=== PATIENT | male | born 1965 | race Caucasian/White ===

== ENCOUNTER 2020-12-15 15:54 | Emergency (ER) | payer SELFPAY ==
[2020-12-15] MEDS ORDERED: Sodium Chloride 0.9% 10 ML Syringe FLUSH PRN (16:23)
[2020-12-15] MEDS ORDERED: REMDESIVIR 200 MG in Sodium Chloride 0.9% 250 ML IV ONE (16:26)
--- NOTE | 2020-12-15 16:41 | EDM.PDOC ---
<Bolivar Liu G - Last Filed: 12/15/20 16:27> ED HPI GENERAL MEDICAL PROBLEM - General Chief Complaint: Respiratory Problem Stated Complaint: COVID Time Seen by Provider: 12/15/20 16:28 Source of Information: Reports: Patient, Old Records, RN History Limitations: Reports: No Limitations - History of Present Illness INITIAL COMMENTS - FREE TEXT/NARRATIVE: 55 yo male here with SOB. He is 10 days into his course. Has not been vaccinated for Covid. His is also sick with Covid for a similar interval, but she is not SOB. Requiring 3 liters/min/nc here in the ER to stabilize his oxygen level. Had Aleve 4 hrs ago. tested + for Covid, he has not actually been tested. Onset: Gradual Onset Date: 12/05/20 Duration: Day(s): (10), Getting Worse Location: Reports: Generalized Quality: Reports: Other (pain not reported. ) Severity: Moderate Improves with: Reports: Other (oxygen) Worsens with: Reports: Other (? time) Context: Reports: Other (See HPI) Associated Symptoms: Reports: Cough, Fever/Chills, Shortness of Breath Treatments [employer]ER: Reports: NSAIDS ED ROS GENERAL - Review of Systems Review Of Systems: See Below Constitutional: Reports: Fever, Chills, Malaise HEENT: Reports: No Symptoms Respiratory: Reports: Shortness of Breath, Cough. Denies: Wheezing, Pleuritic Chest Pain, Sputum, Hemoptysis Cardiovascular: Reports: Lightheadedness Endocrine: Reports: No Symptoms GI/Abdominal: Reports: No Symptoms : Reports: No Symptoms Musculoskeletal: Reports: No Symptoms Skin: Reports: No Symptoms Neurological: Reports: Other (States L arm stopped working for a couple days, but is now working again. ) ED EXAM, GENERAL - Physical Exam Exam: See Below Exam Limited By: No Limitations General Appearance: Alert, WD/WN, Mild Distress Eye Exam: Bilateral Eye: Normal Inspection Ears: Normal External Exam, Normal Canal, Hearing Grossly Normal Ear Exam: Bilateral Ear: Auricle Normal, Canal Normal Nose: Normal Inspection, No Blood Throat/Mouth: Normal Inspection, Normal Lips, Normal Oropharynx, Normal Voice, No Airway Compromise Head: Atraumatic, Normocephalic Neck: Normal Inspection Respiratory/Chest: Crackles (both lungs in all to), Other (tachypnea). No: No Respiratory Distress, Lungs Clear, Normal Breath Sounds Cardiovascular: Regular Rate, Rhythm, No Edema GI/Abdominal: Normal Bowel Sounds, Soft, Non-Tender, No Distention Back Exam: Normal Inspection. No: CVA Tenderness (R), CVA Tenderness (L) Extremities: Normal Inspection, Normal Range of Motion, Non-Tender, No Pedal Edema. No: Pedal Edema Neurological: Alert, Oriented, CN II-XII Intact, Normal Cognition, No Motor/Sensory Deficits Psychiatric: Normal Affect, Normal Mood Skin Exam: Warm, Dry, Intact, Normal Color, No Rash Departure - Departure Disposition: DC/Tfer to [facility] Clinical Impression: COVID-19 virus infection, Acute respiratory failure with hypoxia - Discharge Information Instructions: COVID-19 Vaccine Information, Upper Respiratory Infection, Adult, [facility] Forms: ED Department Discharge <Jesus Aceves - Last Filed: 12/16/20 10:13> Course - Vital Signs Text/Narrative:: Patient tested positive for COVID-19. He is not vaccinated. Patient was given 200 mg of remdesivir completed at 1742 on 12/15/2020. Patient was then given 6 mg of Decadron at 1 on 12/15/2020. Patient's breathing continued to deteriorate and he was moved from nasal cannula to high flow nasal cannula initially placed at 50 L/min with saturation at approximately 92%. After Decadron patient's breathing improved slightly and he was reduced to 40 L/min and saturates between 88 and 94% with respiratory rate between 28 and 32. Patient was given 40 mg subcu Lovenox at 10 AM on 12/16/2020. The patient will be transferred to the [facility] at [place], [place]. Last Recorded V/S: Last Vital Signs Temp 36.6 C 12/16/20 08:00 Pulse 90 12/16/20 08:00 Resp 30 H 12/16/20 08:00 BP 119/72 12/16/20 08:00 Pulse Ox 94 L 12/16/20 08:00 - Orders/Labs/Meds Orders: Active Orders 24 hr Category Date Time Status FERRITIN Urgent Lab 12/15/20 16:35 Received HEPATIC FUNCTION PANEL,HFP [CHEM] DAILY Lab 12/17/20 16:30 Ordered HEPATIC FUNCTION PANEL,HFP [CHEM] DAILY Lab 12/18/20 16:30 Ordered HEPATIC FUNCTION PANEL,HFP [CHEM] DAILY Lab 12/19/20 16:30 Ordered Sodium Chloride 0.9% [Saline Flush] Med 12/15/20 16:23 Active 10 ml FLUSH ASDIRECTED PRN metFORMIN [Glucophage XR] Med 12/16/20 08:00 Active 1,000 mg PO BIDMEALS RT Oxygen High Flow [RESPCARE] Stat Oth 12/15/20 19:59 Active Saline Lock Insert [OM.PC] Routine Oth 12/15/20 16:23 Ordered Medication Orders Metformin HCl (Metformin 500 Mg Tab.Er) 1,000 mg PO BIDMEALS CHRISTA Last Admin: 12/16/20 08:30 Dose: 1,000 mg Documented by: TERESAIMATaylor Sodium Chloride (Sodium Chloride 0.9% 10 Ml Syringe) 10 ml FLUSH ASDIRECTED PRN PRN Reason: Keep Vein Open Labs: Laboratory Tests 12/15/20 12/15/20 12/15/20 Range/Units 16:35 16:35 16:35 WBC 4.5 (3.2-10.1) x10-3/uL RBC 4.98 (3.90-5.90) x10(6)uL Hgb 15.2 (12.9-17.7) g/dL Hct 44.7 (38.3-50.1) % MCV 89.7 (80.8-98.7) fL MCH 30.5 (27.0-33.3) pg MCHC 34.0 (28.7-35.3) g/dL RDW 12.8 (12.4-15.0) % Plt Count 144 (117-477) x10(3)uL D-Dimer, Quantitative (0.0-0.59) mg/LFEU POC VBG pH (7.32-7.43) pH Units POC VBG pCO2 (41-51) mmHg POC VBG HCO3 (22-29) mmol/L VBG Base Excess (-2 - 3+) mmol/L O2 Delivery Device Oxygen Flow Rate LPM Sodium 134 L (135-145) mmol/L Potassium 3.9 (3.5-5.3) mmol/L Chloride 97 L (100-110) mmol/L Carbon Dioxide 30 (21-32) mmol/L BUN 12 (7-18) mg/dL Creatinine 1.1 (0.70-1.30) mg/dL Est Cr Clr Drug Dosing TNP Estimated GFR (MDRD) > 60 (>60) BUN/Creatinine Ratio 10.9 (9-20) Glucose 226 H (80-116) mg/dL POC Glucose (80-116) mg/dL Hemoglobin A1c (<5.7) % Calcium 7.8 L (8.6-10.2) mg/dL Total Bilirubin 0.4 (0.1-1.3) mg/dL Direct Bilirubin 0.15 (0.10-0.20) mg/dL AST 36 H (5-25) IU/L ALT 27 (12-36) U/L Alkaline Phosphatase 87 (56-112) IU/L Lactate Dehydrogenase (85-227) U/L Creatine Kinase (60-160) IU/L Troponin I (4.0-60.3) pg/mL C-Reactive Protein (0.5-0.9) mg/dL Total Protein 6.8 (6.0-8.0) g/dL Albumin 2.9 L (3.5-5.2) g/dL SARS-CoV-2 RNA (ALYCE) (NEGATIVE) 12/15/20 12/15/20 12/15/20 Range/Units 16:35 16:35 16:35 WBC (3.2-10.1) x10-3/uL RBC (3.90-5.90) x10(6)uL Hgb (12.9-17.7) g/dL Hct (38.3-50.1) % MCV (80.8-98.7) fL MCH (27.0-33.3) pg MCHC (28.7-35.3) g/dL RDW (12.4-15.0) % Plt Count (117-477) x10(3)uL D-Dimer, Quantitative 0.77 H (0.0-0.59) mg/LFEU POC VBG pH (7.32-7.43) pH Units POC VBG pCO2 (41-51) mmHg POC VBG HCO3 (22-29) mmol/L VBG Base Excess (-2 - 3+) mmol/L O2 Delivery Device Oxygen Flow Rate LPM Sodium (135-145) mmol/L Potassium (3.5-5.3) mmol/L Chloride (100-110) mmol/L Carbon Dioxide (21-32) mmol/L BUN (7-18) mg/dL Creatinine (0.70-1.30) mg/dL Est Cr Clr Drug Dosing Estimated GFR (MDRD) (>60) BUN/Creatinine Ratio (9-20) Glucose (80-116) mg/dL POC Glucose (80-116) mg/dL Hemoglobin A1c 9.1 H (<5.7) % Calcium (8.6-10.2) mg/dL Total Bilirubin (0.1-1.3) mg/dL Direct Bilirubin (0.10-0.20) mg/dL AST (5-25) IU/L ALT (12-36) U/L Alkaline Phosphatase (56-112) IU/L Lactate Dehydrogenase (85-227) U/L Creatine Kinase (60-160) IU/L Troponin I 11.1 (4.0-60.3) pg/mL C-Reactive Protein 9.2 H* (0.5-0.9) mg/dL Total Protein (6.0-8.0) g/dL Albumin (3.5-5.2) g/dL SARS-CoV-2 RNA (ALYCE) (NEGATIVE) 12/15/20 12/15/20 12/16/20 Range/Units 16:35 17:00 04:52 WBC (3.2-10.1) x10-3/uL RBC (3.90-5.90) x10(6)uL Hgb (12.9-17.7) g/dL Hct (38.3-50.1) % MCV (80.8-98.7) fL MCH (27.0-33.3) pg MCHC (28.7-35.3) g/dL RDW (12.4-15.0) % Plt Count (117-477) x10(3)uL D-Dimer, Quantitative (0.0-0.59) mg/LFEU POC VBG pH (7.32-7.43) pH Units POC VBG pCO2 (41-51) mmHg POC VBG HCO3 (22-29) mmol/L VBG Base Excess (-2 - 3+) mmol/L O2 Delivery Device Oxygen Flow Rate LPM Sodium (135-145) mmol/L Potassium (3.5-5.3) mmol/L Chloride (100-110) mmol/L Carbon Dioxide (21-32) mmol/L BUN (7-18) mg/dL Creatinine (0.70-1.30) mg/dL Est Cr Clr Drug Dosing Estimated GFR (MDRD) (>60) BUN/Creatinine Ratio (9-20) Glucose (80-116) mg/dL POC Glucose (80-116) mg/dL Hemoglobin A1c (<5.7) % Calcium (8.6-10.2) mg/dL Total Bilirubin 0.4 (0.1-1.3) mg/dL Direct Bilirubin 0.16 (0.10-0.20) mg/dL AST 42 H D (5-25) IU/L ALT 29 (12-36) U/L Alkaline Phosphatase 86 (56-112) IU/L Lactate Dehydrogenase 419 H (85-227) U/L Creatine Kinase 336 H* (60-160) IU/L Troponin I (4.0-60.3) pg/mL C-Reactive Protein (0.5-0.9) mg/dL Total Protein 6.8 (6.0-8.0) g/dL Albumin 2.8 L (3.5-5.2) g/dL SARS-CoV-2 RNA (ALYCE) Positive H (NEGATIVE) 12/16/20 12/16/20 Range/Units 05:29 08:35 WBC (3.2-10.1) x10-3/uL RBC (3.90-5.90) x10(6)uL Hgb (12.9-17.7) g/dL Hct (38.3-50.1) % MCV (80.8-98.7) fL MCH (27.0-33.3) pg MCHC (28.7-35.3) g/dL RDW (12.4-15.0) % Plt Count (117-477) x10(3)uL D-Dimer, Quantitative (0.0-0.59) mg/LFEU POC VBG pH 7.42 (7.32-7.43) pH Units POC VBG pCO2 35 L (41-51) mmHg POC VBG HCO3 23 (22-29) mmol/L VBG Base Excess -1 (-2 - 3+) mmol/L O2 Delivery Device Hi flow nasal cannu Oxygen Flow Rate 45 LPM Sodium (135-145) mmol/L Potassium (3.5-5.3) mmol/L Chloride (100-110) mmol/L Carbon Dioxide (21-32) mmol/L BUN (7-18) mg/dL Creatinine (0.70-1.30) mg/dL Est Cr Clr Drug Dosing Estimated GFR (MDRD) (>60) BUN/Creatinine Ratio (9-20) Glucose (80-116) mg/dL POC Glucose 274 H (80-116) mg/dL Hemoglobin A1c (<5.7) % Calcium (8.6-10.2) mg/dL Total Bilirubin (0.1-1.3) mg/dL Direct Bilirubin (0.10-0.20) mg/dL AST (5-25) IU/L ALT (12-36) U/L Alkaline Phosphatase (56-112) IU/L Lactate Dehydrogenase (85-227) U/L Creatine Kinase (60-160) IU/L Troponin I (4.0-60.3) pg/mL C-Reactive Protein (0.5-0.9) mg/dL Total Protein (6.0-8.0) g/dL Albumin (3.5-5.2) g/dL SARS-CoV-2 RNA (ALYEC) (NEGATIVE) Meds: Medications Generic Name Dose Route Start Last Admin Trade Name Freq PRN Reason Stop Dose Admin Metformin HCl 1,000 mg 12/16/20 08:00 12/16/20 08:30 Metformin 500 Mg Tab.Er PO 1,000 mg BIDMEALS CHRISTA Administration Sodium Chloride 10 ml 12/15/20 16:23 Sodium Chloride 0.9% 10 Ml Syringe FLUSH ASDIRECTED PRN Keep Vein Open Discontinued Medications Generic Name Dose Route Start Last Admin Trade Name Freq PRN Reason Stop Dose Admin Dexamethasone 6 mg 12/15/20 20:08 12/15/20 20:31 Dexamethasone 4 Mg/Ml Sdv IVPUSH 12/15/20 20:09 6 mg ONETIME ONE Administration Enoxaparin Sodium 40 mg 12/16/20 09:36 Enoxaparin 40 Mg/0.4 Ml Syringe SUBCUT 12/16/20 09:37 ONETIME ONE Remdesivir 200 mg/ Sodium 250 mls @ 200 mls/hr 12/15/20 16:26 12/15/20 17:42 Chloride IV 12/15/20 17:40 200 mls/hr ONETIME ONE Administration Departure - Departure Time of Disposition: 10:10 Condition: Fair - Discharge Information *PRESCRIPTION DRUG MONITORING PROGRAM REVIEWED*: Not Applicable *COPY OF PRESCRIPTION DRUG MONITORING REPORT IN PATIENT JAMES: Not Applicable Sepsis Event Note (ED) - Focused Exam Vital Signs: Vital Signs Temp Pulse Resp BP Pulse Ox 12/16/20 08:00 36.6 C 90 30 H 119/72 94 L - My Orders Last 24 Hours: My Active Orders 12/15/20 16:35 FERRITIN Urgent 12/15/20 19:59 RT Oxygen High Flow [RESPCARE] Stat - Assessment/Plan Last 24 Hours: My Active Orders 12/15/20 16:35 FERRITIN Urgent 12/15/20 19:59 RT Oxygen High Flow [RESPCARE] Stat
[2020-12-15 19:06] LABS: HEMOGLOBIN A1C 9.1 % (<5.7)
[2020-12-15] MEDS ORDERED: Dexamethasone 4 MG/ML SDV IVPUSH ONE (20:08)
[2020-12-16 05:32] LABS: BASE EXCESS VENOUS,POC -1 mmol/L (-2 - 3+); PCO2 VENOUS,POC 35 mmHg (41-51); PH VENOUS,POC 7.42 pH Units (7.32-7.43)
[2020-12-16] MEDS ORDERED: metFORMIN 500 MG Tab.ER PO SCH (08:00)
[2020-12-16] MEDS ORDERED: Enoxaparin 40 MG/0.4 ML Syringe SUBCUT ONE (09:36)
--- NOTE | 2020-12-16 11:47 | PCM.EKG ---
#1 Interpretation EKG Date: 12/16/20 Time: 11:33 EKG Interpretation Comments: Sinus tachycardia, rate 103, no obvious ST-T segment abnormalities, large T wave in V2, V3. Note that potassium was within normal limits on admission to the emergency department approximately 24 hours ago.
== END 2020-12-16 12:15 ==
LOC: FB.ED 15:54
DX: U07.1 COVID-19 (principal); J96.01 Acute respiratory failure with hypoxia
CPT/HCPCS: 36415; 80048; 80076; 82550; 82728; 82947; 83036; 83615; 84484; 85027; 85379; 86140; 87635; 93005; 96372; 96374; 99285; A9270; J1100; J1650; J7050; U0002